=== PATIENT | female | born 1955 | race Caucasian/White ===

== ENCOUNTER → 2019-02-02 | Outpatient (CLI) | payer MEDICARE, MEDICAID ==
[~2019-02-02] MED LIST: AMBIEN 5 MG TABL5 M1 PO; ATIVAN1 MG PO; COREG25 MG PO; COZAAR 50 MG TA50 M2 PO; CRESTOR40 MG PO; FLEXERIL PO; HYDROCHLOROTHIA25 M2 PO; HYDROCODONE-AP1 EAC6 PO; MEDROLDOSEPACK PO; METFORMIN HCL500 MG PO; PERCOCET 10-321 EACH PO; WELLBUTRIN XL300 MG PO
[2019-02-02 14:07] LABS: ABSOLUTE BASOPHILS 0.1 thou/uL (0.0-0.2); ABSOLUTE EOSINOPHILS 0.1 thou/uL (0.0-0.7); ABSOLUTE MONOCYTES 0.4 thou/uL (0.0-1.2); ABSOLUTE NEUTROPHILS 4.3 thou/uL (1.6-8.1); BASOPHILS 0.8 %; EOSINOPHILS 1.8 %; HEMATOCRIT 40.6 % (37.0-47.0); HEMOGLOBIN 13.9 gm/dL (12.0-15.0); LYMPHOCYTES 28.9 %; MCH 29.2 pg (26.0-34.0); MCHC 34.2 g/dL (28.0-37.0); MCV 85.4 fL (80.0-100.0); MPV 8.7 fl. (7.2-11.1); NUCLEATED RBCS 0 /100WBC; PLATELET COUNT* 237 thou/uL (150-400); POLYS 62.5 %; RBC 4.76 mil/uL (4.20-5.00); RDW-CV 13.6 % (10.5-14.5); WBC 6.9 thou/uL (4.0-11.0)
[2019-02-02 14:23] LABS: ALBUMIN 3.9 g/dL (3.4-5.0); CALCIUM 9.7 mg/dL (8.5-10.1); CREATININE 0.8 mg/dL (0.6-1.3); POTASSIUM 3.9 mmol/L (3.5-5.1); TOTAL BILIRUBIN 0.8 mg/dL (<0.1-1.0); TOTAL PROTEIN 7.7 g/dL (6.4-8.2)
== END ==
LOC: M.CT 13:30
PROVIDERS: Internal Medicine
DX: R82.90 Unspecified abnormal findings in urine (principal); R30.9 Painful micturition, unspecified; M51.36 Other intervertebral disc degeneration, lumbar region

== ENCOUNTER → 2019-09-08 | Outpatient (CLI) | payer MEDICARE, MEDICAID | LOC: M.ULTRA 07:05 | DX: Z12.31 Encounter for screening mammogram for malignant neoplasm of breast (principal); R10.9 Unspecified abdominal pain; I10 Essential (primary) hypertension; E78.5 Hyperlipidemia, unspecified; E11.42 Type 2 diabetes mellitus with diabetic polyneuropathy ==

== ENCOUNTER → 2020-06-28 | Outpatient (CLI) | payer MEDICARE, MEDICAID | LOC: M.ULTRA 09:00 | PROVIDERS: ATTEND Registered Nurse Diabetes Educator | DX: R19.7 Diarrhea, unspecified (principal); R11.0 Nausea ==

== ENCOUNTER → 2020-12-13 | Outpatient (CLI) | payer MEDICARE, MEDICAID | LOC: M.RAD 11:29 → M.CT 11:30 | PROVIDERS: ATTEND Registered Nurse Diabetes Educator | DX: Z12.31 Encounter for screening mammogram for malignant neoplasm of breast (principal); J32.0 Chronic maxillary sinusitis; R42 Dizziness and giddiness; J34.1 Cyst and mucocele of nose and nasal sinus; I65.23 Occlusion and stenosis of bilateral carotid arteries ==

== ENCOUNTER → 2021-04-21 | Outpatient (CLI) | payer MEDICARE, MEDICAID | LOC: M.RAD 11:58 | PROVIDERS: ATTEND Registered Nurse Diabetes Educator | DX: J90 Pleural effusion, not elsewhere classified (principal); R05 Cough; R06.00 Dyspnea, unspecified; R07.9 Chest pain, unspecified ==

== ENCOUNTER → 2021-10-22 | Outpatient (CLI) | payer MEDICARE, MEDICAID | LOC: M.ULTRA 09-10 10:30 | PROVIDERS: ATTEND Registered Nurse Diabetes Educator | DX: S69.91XA Unspecified injury of right wrist, hand and finger(s), initial encounter (principal); E83.52 Hypercalcemia; E04.2 Nontoxic multinodular goiter; M19.041 Primary osteoarthritis, right hand; X58.XXXA Exposure to other specified factors, initial encounter; Y93.89 Activity, other specified; Y92.89 Other specified places as the place of occurrence of the external cause; Y99.8 Other external cause status ==